=== PATIENT | female | born 1980 | race African-American/Black ===

== ENCOUNTER → 2017-07-31 | Outpatient (CLI) | payer BC | LOC: RAD 13:22 → EDSTATUS 13:30 | PROVIDERS: ATTEND Nurse Practitioner Family | DX: N63.22 Unspecified lump in the left breast, upper inner quadrant (principal) | CPT/HCPCS: 76642; 77066 ==

== ENCOUNTER → 2017-08-19 | Outpatient (CLI) | payer BC ==
--- NOTE | 2017-08-19 14:52 | MG ---
HISTORY: BI-RADS 4 lesion, confirm clip placement Left breast digital diagnostic mammography with CAD. Comparison: July 31, 2017 FINDINGS: CC and MLO projections of the left breast were obtained. Scattered fibroglandular tissue is seen to be present with interval placement of a biopsy clip within the lesion of interest at 11 o'clock anter iorly which appears otherwise stable. Correlation with pathologic concordance is recommended. No sk in thickening or nipple retraction is appreciated. No pathological lymphadenopathy can be identifie d. Benign-appearing calcifications are noted. IMPRESSION: Satisfactory clip placement. Correlation with pathologic concordance is recommended prio r to definitive BI-RADS classification. Those results are not currently available. ACR CATEGORY 0 - assessment incomplete; correlation with pathologic concordance is recommended. Diagnostic CAD was utilized and reviewed. * 0 (ZERO) - ASSESSMENT INCOMPLETE; ADDITIONAL IMAGING IS NEEDED. * 1/1 (ONE) - NEGATIVE. * 2/II (TWO) - BENIGN FINDINGS. * 3/III (THREE) - PROBABLY BENIGN FINDING; SHORT INTERVAL FOLLOW-UP SUGGESTED. * 4/IV (FOUR) - SUSPICIOUS ABNORMALITY; BIOPSY SHOULD BE CONSIDERED. * 5/V - HIGHLY SUSPICIOUS OF MALIGNANCY; BIOPSY SHOULD BE PERFORMED. A NEGATIVE X-RAY REPORT SHOULD NOT DELAY BIOPSY IF A DOMINANT OR CLINICALLY SUSPICIOUS MASS IS PRESENT; 4 TO 8 PERCENT OF CANCERS ARE NOT IDENTIFIED BY X-RAY. A NEGA TIVE REPORT MAY REINFORCE THE CLINICAL IMPRESSION. ADENOSIS AND DENSE BREASTS MAY OBSCURE AN UNDERLY ING NEOPLASM. Reported By:
== END ==
LOC: RAD 14:10
PROVIDERS: ATTEND Surgery
DX: N63.22 Unspecified lump in the left breast, upper inner quadrant (principal); Z98.890 Other specified postprocedural states
CPT/HCPCS: 77065